=== PATIENT | female | born 1990 | race Caucasian/White ===

== ENCOUNTER 2020-05-23 06:03 | Inpatient (IN) | payer BC, SELFPAY ==
[2020-05-23] VITALS (194 sets, daily range): BP systolic 86–137; BP diastolic 37–113; PULSE 31–238; RESP 16–20; TEMP 36.3–37.7; O2SAT 77–100; BMI 37.8
[2020-05-23 06:46] LABS: Basophils Absolute Auto 0.1 K/mm3 (0.0-0.1); Basophils Percent Auto 0.8 % (0.2-1.2); Eosinophils Absolute Auto 0.2 K/mm3 (0-0.3); Eosinophils Percent Auto 3.1 % (0-4.4); Hematocrit 36.2 % (37.0-47.0); Hemoglobin 11.9 g/dL (12.0-15.0); Immature Granulocyte Absolute 0.04 K/mm3 (0.00-0.031); Immature Granulocyte Percent A 0.5 % (0-0.5); Lymphocytes Absolute Auto 1.77 K/mm3 (0.9-3.2); Mean Corpuscular HGB Conc 32.9 g/dl (32-36); Mean Corpuscular Hemoglobin 26.4 pg (26-34); Mean Corpuscular Volume 80.4 fl (80-100); Monocytes Absolute Auto 0.7 K/mm3 (0.1-0.6); Monocytes Percent Auto 9.8 % (2.6-8.5); Neutrophils Absolute Auto 4.6 K/mm3 (1.3-6.7); Neutrophils Percent Auto 61.8 % (45.5-73.1); Platelet Count Result 275 k/mm3 (150-375); Red Cell Distribution Width 14.2 % (11.5-14.5); White Blood Count 7.4 K/mm3 (4.5-10.0)
[2020-05-23] MEDS: LACTATED RINGERS 1,000 ML 125 ML IV CONT ×3 (06:59→12:58)
[2020-05-23] MEDS: OXYTOCIN 30 UNITS/NS 500 ML 30 UNITS/500 ML BAG 6 UNITS IV CONT (07:04)
--- NOTE | 2020-05-23 07:18 | LDADM ---
This patient, Brianna Best, was admitted to Labor/Delivery/Recovery 107 on 05/23/20 at 06:03. Plans for labor, pain management and were discussed with patient. Patient/family oriented to hospital policies and general routines including ID bracelet, bed and alarms, visiting hours, pain management, procedures, bathroom and other care routines, personal items, smoking policy, room service/diet and guest tray routines, infant security routines, call light, and visiting hours. Patient/Family are encouraged to report perceived risks to care and to ask questions if they do not understand what they are told or what they should do. See OBIX for further documentation.
--- NOTE | 2020-05-23 07:45 | WPDOBADMIT ---
Obstetrics - Admit Note Admission Note: record reviewed. Additions to the history and/or subsequent changes in the physical findings follow. 29 y/o G1 at 39 1/7 weeks here desiring induction of labor. GBS neg. AVSS ABD soft, nontender, gravid, vertex EXT nontender Cervix 350/-2. AROM with clear fluid. Vertex. NST reactive TOCO: contractions every 2-4 min A: IUP at term with favorable cervix P: Oxytocin. Anticipate .
[2020-05-23] MEDS: ONDANSETRON INJ 4 MG/2 ML VIAL IV PUSH ×2 (09:44→15:45)
--- NOTE | 2020-05-23 10:13 | P.PNAN_ITS ---
Anes - Eval Pre Procedure Procedure: Labor Epidural Date/Time: 05/23/20 10:13 Pre Op Diagnosis: Induction of Labor Patient Data Age: 29 Gender: F Height: 1.73 m Weight: 112.9 kg Last Vital Signs Temp 36.3 C L 05/23/20 10:00 Pulse 71 05/23/20 10:00 BP 113/66 05/23/20 10:00 Pulse Ox 96 05/23/20 10:12 Allergies Allergy/AdvReac Type Severity Reaction Status Date / Time No Known Allergies Allergy Verified 05/23/20 06:24 Home Medications Medication Instructions Recorded Confirmed Type PNV cmb#95-ferrous fumarate-FA 1 tablet PO DAILY 05/04/20 05/23/20 History [] Laboratory Tests 05/23/20 05/23/20 05/23/20 06:40 06:40 06:40 WBC 7.4 K/mm3 K/mm3 (4.5-10.0) RBC 4.50 M/mm3 M/mm3 (4.2-5.4) Hgb 11.9 g/dL L g/dL (12.0-15.0) Hct 36.2 % L % (37.0-47.0) MCV 80.4 fl fl (80-100) MCH 26.4 pg pg (26-34) MCHC 32.9 g/dl g/dl (32-36) RDW 14.2 % % (11.5-14.5) Plt Count 275 k/mm3 k/mm3 (150-375) MPV 11.0 fl H fl (7.4-10.4) Immature Gran % (Auto) 0.5 % % (0-0.5) Neut % (Auto) 61.8 % % (45.5-73.1) Lymph % (Auto) 24.0 % % (18.3-44.2) Travis % (Auto) 9.8 % H % (2.6-8.5) Eos % (Auto) 3.1 % % (0-4.4) Baso % (Auto) 0.8 % % (0.2-1.2) Lymph # (Auto) 1.77 K/mm3 K/mm3 (0.9-3.2) Travis # (Auto) 0.7 K/mm3 H K/mm3 (0.1-0.6) Eos # (Auto) 0.2 K/mm3 K/mm3 (0-0.3) Baso # (Auto) 0.1 K/mm3 K/mm3 (0.0-0.1) Abs Immat Gran (auto) 0.04 K/mm3 H K/mm3 (0.00-0.031) Absolute Neuts (auto) 4.6 K/mm3 K/mm3 (1.3-6.7) Absolute Nucleated RBC 0.0 K/mm3 K/mm3 (0.0-0.012) Nucleated RBC % 0.0 % % (0.0-0.2) RPR Pending Blood Type A Positive Antibody Screen Negative Patient hx anesthesia problems: none Family hx anesthesia problems: none PMFSH Family History Family History Father Epilepsy Mother Hypothyroidism Social History Social History Smoking status: Never smoker Substance use: never Gender identity (if verbalized by the patient): Female Spiritual care concerns: No Exam Day of Procedure 05/23/20 10:13 Patient weight: obese Heart: regular rate and rhythm Lungs: normal air movement Airway: Mallampati scale class III Neurological: alert and oriented
--- NOTE | 2020-05-23 17:30 | PM.OBPNLAB ---
Pain Control Date/time seen: 05/23/20 17:52 Comments: Comfortable with epidural Pelvic Exam Dilation (cm): 10 Effacement (%): 100 station: +1 Status Comments: NST reactive TOCO: contractions every 2-4 min Assessment and Plan Comments: Begin pushing
--- NOTE | 2020-05-23 17:53 | PM.OBDSVD ---
DS: Admitting Diagnosis Admitting Diagnosis Admitting Diagnosis: IUP at term DS: Discharge Diagnosis Discharge Diagnosis (1) (normal spontaneous vaginal delivery): Code(s): O80 - Encounter for full-term uncomplicated delivery Status: Acute OB - DS: Summary OB Procedures : None OB Procedures Intrapartum: Spontaneous Vag Delivery OB Procedures: : None DS: Data Data Completed and Pending Labs on day of discharge: Labs from last 24 hours 05/23/20 05/23/20 05/23/20 06:40 06:40 06:40 WBC 7.4 RBC 4.50 Hgb 11.9 L Hct 36.2 L MCV 80.4 MCH 26.4 MCHC 32.9 RDW 14.2 Plt Count 275 MPV 11.0 H Immature Gran % (Auto) 0.5 Neut % (Auto) 61.8 Lymph % (Auto) 24.0 [place] % (Auto) 9.8 H Eos % (Auto) 3.1 Baso % (Auto) 0.8 Lymph # (Auto) 1.77 [place] # (Auto) 0.7 H Eos # (Auto) 0.2 Baso # (Auto) 0.1 Abs Immat Gran (auto) 0.04 H Absolute Neuts (auto) 4.6 Absolute Nucleated RBC 0.0 Nucleated RBC % 0.0 RPR Pending Blood Type A Positive Antibody Screen Negative Discharge Plan Discharge Attending physician on discharge: Warren Mena Discharging Clinician: Warren Mena Patient Disposition: Home, Self-Care Activity: pelvic rest Diet: regular Discharge Instructions: Education: Mom and Baby Guide Given to: Mother Follow-Up: Call your delivering provider's office for an appointment to be seen in: 6 Weeks Mom and baby should come to the [facility] for the follow-up appointment. Appointment Date/Time: Wednesday, May 27, 2020 at 11:00 a.m. What to expect at your follow-up visit: Blood Pressure Check Physical Assessment Call [phone] if you are unable to keep your appointment time. BREAST CARE: * Wear a snug supportive bra. * For engorgement discomfort: Breast Feeding: * Apply warm moist washcloths * Express milk as needed to relieve engorgement * Wear loose clothing * For sore nipples: * Identify correct latch-on * Apply warm moist washcloths before and after nursing * Air dry nipples after nursing * May apply Lansinoh cream to nipples EPISIOTOMY/PERINEAL CARE: * Until bleeding stops, use your aram bottle after urinating * Change your pad frequently throughout the day * You may take sitz baths several times a day (fill your bathtub with warm water and soak for 20 minutes.) Do NOT bathe in the water * No tub baths until seen by your physician - You may shower ACTIVITY: * Rest as much as possible. * Do not exercise or lift anything heavier than your baby (such as laundry or other children.) * Avoid stairs or driving as much as possible. * Do not put anything into the vagina. No douching, tampons, or sexual activity until seen by physician. NOTIFY PHYSICIAN IF YOU HAVE ANY QUESTIONS OR IF ANY OF THE FOLLOWING SYMPTOMS OCCUR: * If your perineum becomes red, swollen, or more painful than what you have experienced in the hospital. * If your vaginal bleeding becomes foul smelling. * If your vaginal bleeding becomes more heavy than a period or if your bleeding changes from pink to bright red. However, you may pass an occasional walnut-sized clot once or twice for the first week . * If you experience a sharp, shooting pain in you calves. * If you discover a hard, reddened area on your breast or if you experience flu-like symptoms. DIET: * Eat regular, well-balanced meals. * Drink plenty of fluids daily. If , drink to thirst. Call or return if temperature above 100.4? F, increased abdominal pain, increased vaginal bleeding or any new problems. Stand Alone Forms: General Discharge Information Follow-up/Referrals: Warren Mena MD [Physician] - 6 Weeks Discharge Medications: New ibuprofen 600 mg tablet 600 mg PO Q6H PRN (Reason: scratch brusher
--- NOTE | 2020-05-23 19:28 | P.PCNOB_ITS ---
OB - Delivery Note Procedure Delivery date: 05/23/20 Procedure: Induction of labor with Excisional biopsy of perineal skin tag Induction method: AROM and per pitocin protocol Delivery monitor: external FHT, external uterine and internal uterine Route of delivery: Laceration Description: Labial (left) Delivery repair: vicryl (3-0) Specimen: Yes (cord blood, perineal skin tag) Quantitative Blood Loss (ml): 240 Anesthesia type: Epidural Disposition: PACU Complications: None Narrative: 29 y/o G1 at 39 1/7 weeks gestation who presented to the hospital for induction of labor. Oxytocin was administered intravenously. Amniotomy was performed with return of clear fluid. She received an epidural for pain control. Her labor progressed and her cervix dilated completely. She pushed with good effort and delivered the infant's head to the perineum, followed by the body. The nose and mouth were bulb suctioned. After a delay, the cord was clamped and cut. The was handed off the field. Cord blood was collected. The placenta delivered spontaneously and was grossly normal in appearance. The usual 3 vessel cord was noted. A left labial laceration was montiel stained. This was reapproximated using 3 0 Vicryl in interrupted figure of eight fashion. A 6 x 6 mm perineal skin tag just on the left of midline was elevated and sharply excised. The wound edges were reapproximated with a single interrupted suture of the same material. Excellent hemostasis resulted as did excellent reapproximation of the normal anatomy. Needle and instrument counts were correct. The patient was taken to recovery room in stable condition. The infant went to the nursery in stable condition. I was present and scrubbed for the entire delivery. Baby Date of : 05/23/20 Time of : 19:31 Weeks of gestation at delivery: 39 Infant gender: Male Weight (pounds): 7 Weight (ounces): 1 presentation: vertex position: Left Occiput Posterior Placenta delivery description: Spontaneous and Normal Configuration cord vessel description: 3 Vessels and Delayed Cord Clamping score one minute: 9 score five minutes: 9
[2020-05-23] MEDS: OXYTOCIN 30 UNITS/NS 500 ML 30 UNITS/500 ML BAG 125 UNITS IV CONT (19:38)
[2020-05-23] MEDS: IBUPROFEN 600 MG TABLET PO (21:29)
[2020-05-23] MEDS: BENZOCAINE 20% AER SPR (*SP) 56 GM CAN 1 SPRAY TOPICAL (21:30)
[2020-05-23] MEDS: WITCH HAZEL 40 PADS 1 PAD TOPICAL (21:30)
--- NOTE | 2020-05-23 21:54 | OBPPTRN ---
Patient transferred to post room #286 via wheelchair. Support person present. Oriented to unit, room, information board, rooming in, admission packet and security measures. Patient verbalizes understanding.
[2020-05-24] MEDS: ACETAMINOPHEN 325 MG TABLET 650 MG PO ×2 (01:10→13:13)
[2020-05-24 02:00] VITALS: BP 102/64; PULSE 72; RESP 16; TEMP 36.5; O2SAT 98
[2020-05-24] MEDS: IBUPROFEN 600 MG TABLET PO ×2 (05:45→19:25)
[2020-05-24 06:01] LABS: Hematocrit 31.1 % (37.0-47.0); Hemoglobin 10.4 g/dL (12.0-15.0)
--- NOTE | 2020-05-24 07:33 | PM.OBPNVD ---
OB - PN: Subj Subjective Date/time seen: 05/24/20 07:33 Patient comments: no complaints, pain well controlled and tolerating diet [place] feeding status: exclusively breast feeding Narrative: patient doing well this AM. No complaints. Pain is well controlled. She reports minimal bleeding. She is ambulating and voiding without difficulty. She is tolerating PO. She denies N/V, fever, chills. OB - PN: Obj Data Labs CBC & Chem 7: 05/24/20 05:46 Labs: Laboratory Results - last 24 hr 05/23/20 05/24/20 06:40 05:46 Hgb 10.4 L Hct 31.1 L Blood Type A Positive Antibody Screen Negative OB - PN A/P Plan day: 1 Plan: routine care Comments: patient doing well H/H stable plan for infant circumcision today, risks, benefits, alternatives discussed, verbal consent obtained continue routine care Time Spent With Patient Time: Total time spent is greater than 50% in coordination of care (as documented) at patient's floor/unit and/or counseling patient: Time with patient: less than 15 minutes Review of Systems Review of Systems: All systems reviewed & are unremarkable except as noted in HPI and below Exam Const: General: comfortable and no acute distress Resp: Effort & Inspection: normal respiratory effort Cardio: Rate: regular rate GI: GI Palp: Yes Soft to palpation and No Tenderness to palpation present (GI) Auscultation: normal bowel sounds Other: fundus firm and below umbilicus. Psych: Affect: normal affect
[2020-05-24 08:05] VITALS: BP 116/67; PULSE 75; RESP 18; TEMP 36.5; O2SAT 100
[2020-05-24 08:15] VITALS: PULSE 75; RESP 18; O2SAT 100
[2020-05-24] MEDS: DOCUSATE SODIUM 100 MG CAPSULE PO ×2 (08:21→20:41)
[2020-05-24] MEDS: SIMETHICONE 80 MG TAB.CHEW PO (08:22)
[2020-05-24] MEDS: MULTIVIT/MIN/PREN/FOL AC/IRON TABLET 1 TAB PO (08:22)
--- NOTE | 2020-05-24 09:41 | PC.NURSE ---
Consulted with patient, reviewed feeding cues, frequencies, duration of feedings, feeding elimination flow sheet, and signs of adequate intake. Demonstrated stimulation techniques to wake for feeding. Assisted with to breast. Reviewed positioning/alignment, holding breast and asymmetrical latch on. was able to latch correctly. Infant nursed eagerly, with steady draws and frequent swallowing noted. Reviewed signs of a correct latch, effective nursing and suck swallow ratio. was able to maintain latch without discomfort to mother. Nipple care reviewed. Instructed mother to call out for RN assistance if she is unable to latch for feeding or she has discomfort with nursing. Instructed feeding should be initiated three hours from start of last feeding or if feeding cues are noted before. Mother voiced understanding of information shared.
--- NOTE | 2020-05-24 11:01 | WPDANLDPN2 ---
Anes-Prog Note L&D Date/Time: 05/24/20 11:01 Comfortable throughout: labor and delivery Neuraxial method: epidural Epidural/Spinal procedure site: clean & non-tender Neuro status: Neuro function grossly intact. Respiratory status: normal Airway patency: baseline Mental status: baseline Post-Op hydration status: normal Vital Signs: Last Vital Signs Temp 97.7 F 05/24/20 08:05 Pulse 75 05/24/20 08:05 Resp 18 05/24/20 08:05 BP 116/67 05/24/20 08:05 Pulse Ox 100 05/24/20 08:05 Pain score (VAS): no pain verbalized I/O: Intake & Output 05/23/20 05/24/20 05/24/20 23:59 07:59 15:59 Intake Total 1500 500 Output Total 160 Balance 1340 500 Patient feedback: Patient satisfied with anesthetic care.
[2020-05-24 12:55] LABS: Rapid Plasma Reagin Non-Reactive (NonReactive)
[2020-05-24 13:00] VITALS: BP 112/76; PULSE 103; RESP 20; TEMP 36.4; O2SAT 97
[2020-05-24 16:30] VITALS: BP 115/78; PULSE 87; RESP 18; TEMP 36.6; O2SAT 98
[2020-05-24 19:25] VITALS: BP 114/76; PULSE 88; RESP 16; TEMP 36.8
--- NOTE | 2020-05-25 08:00 | P.DS_ITS ---
DS: Admitting Diagnosis Admitting Diagnosis Admitting Diagnosis: IUP at term for IOL OB - DS: Summary OB Procedures : None OB Procedures Intrapartum: Spontaneous Vag Delivery OB Procedures: : None Status at Discharge Functional status at discharge: independent ambulation Overall status at discharge: patient is back to baseline Time Spent with Patient Time attestation: Total time spent providing and/or coordinating discharge services: Time spent: Less than 30 minutes Exam Const: General: comfortable and no acute distress Resp: Effort & Inspection: normal respiratory effort Auscultation: clear to auscultation bilaterally Cardio: Rate: regular rate GI: GI Palp: Yes Soft to palpation Auscultation: normal bowel sounds Other: Fundus firm below umbilicus Psych: Appearance: grossly normal Mental Status: mental status grossly normal Affect: normal affect DS: Data Data Completed and Pending Pending studies at discharge: Pending at discharge 05/23/20 19:28 Surgical [PTH] Routine Labs on day of discharge: Labs from last 24 hours 05/23/20 06:40 RPR Non-reactive Discharge Plan Discharge Attending physician on discharge: Warren Mena Discharging Clinician: Warren Mena Patient Disposition: Home, Self-Care Activity: pelvic rest Diet: regular Discharge Instructions: Call or return if temperature above 100.4? F, increased abdominal pain, increase d vaginal bleeding or any new problems. Stand Alone Forms: General Discharge Information Follow-up/Referrals: Warren Mena MD [Physician] - 6 Weeks Discharge Medications: New ibuprofen 600 mg tablet 600 mg PO Q6H PRN (Reason: cramps) Qty: 30 RF: 0 Wkj-L-Figecc Cream 1 applic topical PRN PRN (Reason: Sore Nipples) Qty: 28 RF: 0 acetaminophen [Mapap (acetaminophen)] 325 mg Tablet 650 mg PO Q6H PRN (Reason: Mild Pain (1-3) Or Headache) Qty: 30 RF: 0 ibuprofen 600 mg Tablet 600 mg PO Q6H PRN (Reason: Cramping) Qty: 30 RF: 0 Continued PNV cmb#95-ferrous fumarate-FA [] 28 mg iron- 800 mcg Tablet 1 tablet PO DAILY RF: 0 Date of admission: 05/23/20 06:03 Primary Care Provider: PHYSICIAN,OVERHEAD IRRIGATOR Admitting Provider: Warren Mena Attending physician on admission: Warren Mena Condition: Stable
[2020-05-25 08:31] VITALS: BP 119/76; PULSE 85; RESP 18; TEMP 36.6; O2SAT 99
[2020-05-25] MEDS: MULTIVIT/MIN/PREN/FOL AC/IRON TABLET 1 TAB PO (08:58)
[2020-05-25] MEDS: SIMETHICONE 80 MG TAB.CHEW PO (08:59)
[2020-05-25] MEDS: IBUPROFEN 600 MG TABLET PO (08:59)
[2020-05-25] MEDS: DOCUSATE SODIUM 100 MG CAPSULE PO (08:59)
--- NOTE | 2020-05-25 09:07 | PC.NURSE ---
Patient viewed the discharge video Mother & Baby Care, The First Two Weeks . Patient was given the opportunity and encouraged to ask questions. Patient verbalized understanding of information shared and has been given the mother/baby guide for home reference.
[2020-05-27 11:31] VITALS: BP 136/89; PULSE 87; RESP 20; TEMP 36.9; O2SAT 100
== END 2020-05-25 12:30 | disposition home or self-care (01) | DRG 807 ==
LOC: ANHLDR 17:54 → ANHOB2 05-24 11:05 → ANHLDR 05-27 14:14 → ANHOB2 05-27 14:14
PROVIDERS: Admitting Provider Obstetrics & Gynecology; Visit Provider Student in an Organized Health Care Education/Training Program
DX: O76 Abnormality in fetal heart rate and rhythm complicating labor and delivery (principal); Z37.0 Single live birth; O70.0 First degree perineal laceration during delivery; O99.72 Diseases of the skin and subcutaneous tissue complicating childbirth; Z3A.39 39 weeks gestation of pregnancy; L91.8 Other hypertrophic disorders of the skin
CPT/HCPCS: 36415; 85014; 85018; 85025; 86592; 86850; 86900; 86901; 88305; 88342; A9270; J2405; J2590; J2795; J7120

== ENCOUNTER 2020-06-13 10:59 | Outpatient (RCR) | payer BC, SELFPAY ==
--- NOTE | 2020-06-05 12:50 | PC.NURSE ---
IN 1000 OUT 1105 HISTORY: Pt. delivered at [facility] at 39 weeks. had no complications after delivery. Mother had no complications after delivery. is now 13 days/weeks old. Infant appears to be well cared for. has been seen by ICP as scheduled. Infant last seen by ICP at 1 week. Mother reports: Mother was given a nipple shield within the first few feedings. Mother has weaned from shield and will only use if infant refuses to latch. Pain with feeding at latch and after feeding. Both nipples have scabs to center of nipple from incorrect latch. Mother has been on AB TX for mastitis, today is the last day of medications. No visual signs of mastitis noted, mother denies deep breast pain at this time. Infant feeds freq and inconsistently, falling asleep while feeding then when removed from breast he is awake with crying and rooting. Mother reports she supplements at times and is very confused and tired from freq feedings. Mother wishes: Correct latch, less pain and more satisfied after feedings. Currently at 6 wets per day and 4 yellow seedy stools per day. weight: 7#1 Discharge weight: 6#11 Last Weight: at 1 week 6#14 Pre feeding weight: 3370 Post feeding weight: 3401 OBSERVATION: Assisted with infant to breast. Reviewed positioning/alignment in cross cradle, holding breast in U hold and guided asymmetrical latch on. was able to latch correctly within a few attempts without shield. nursed eagerly, with steady draws and frequent swallowing noted. Infant quickly began to slow with long pausing. Suggested to stimulate while feeding to keep infant awake and nursing effectively for increased stimulation and increased intake. responded with burst of effective nursing with intermittent long pausing. Discussed how suck swallow relates to infant intake, and milk supply and well as maintaining deep latch. Reviewed signs of a correct latch, effective nursing and suck swallow ratio. Infant was able to maintain latch. Mother reported tenderness at times, had slipped to shallow latch. Demonstrated how to adjust latch more deeply while feeding. Mother quickly reports she can feel is latched more deeply and has minimal tenderness. Mother was able to switch to right breast and latch correctly without assist. PLAN: Mother will follow above feeding plan using techniques for deeper latch and keeping awake and effectively feeding each feeding. Mother will initiate pumping after two feeding per day and offering EBM when infant does not settle after 40 minutes of feeding. Mother will call with further questions or concerns. Follow up phone call scheduled for Wednesday.
--- NOTE | 2020-06-13 11:24 | PC.NURSE ---
IN 1000 OUT 1055 HISTORY: Mother and in 1 week ago for latch issues. Worked with deeper latch, mother had pain with feeding and scabbing to both nipples. was inconsistent and fussy with and after feedings. Mother reports she has seen ICP and infant has not gained weight from last visit. Mother continues with nipple pain. is fussy between feedings and does not appear to be satisfied. Mother will supplement at times. Mother reports she feels full at feedings and can feel does empty. She can pump 1 oz per session 2-3 times per day. Currently at 6 wets per day and 4 yellow seedy stools per day. weight: Discharge weight: Last Weight: Pre feeding weight: 3429 Post feeding weight: Right breast 3451 25 minutes and Left breast 3456 8 minutes OBSERVATION: Mother struggles to latch . Assisted with positioning/alignment and holding breast for football on right breast. keeps tongue curled up and several attempts to latch correctly with nipple on tongue. Infant would latch with nipple under tongue and suck, mother reported pain, she did not understand latch was incorrect and release. Mother allowed to continue to nurse incorrectly. Discussed the difference of the long draws and the short chewy suck to assist with recognizing correct latch. Discussed infant does not receive a good milk flow with incorrect latch and this is causing the nipple pain and breakdown. Suggested mother visualizes tongue is down before attempting latch. Once on infant nurses eagerly with long draws and freq swallowing for 2-3 minutes then begins to slow. will slip to shallow latch and freq will draw tongue up and continue to suck with tongue up, with heavy dimpling noted. Advised mother once is on correctly and nursing to assist with maintaining deep latch by holding breast and keeping infant close to breast. Good stimulation while feeding to keep awake and nursing effectively with assist with increased intake and stimulation to increase supply. Mother struggles to keep infant awake with feedings. PLAN: Mother will follow above feeding plan using techniques for deeper latch, breaking and relatching if latch is incorrect. Suggested for the next 24 hours to allow to breast for 30 minutes, then supplement 1 oz and pump after each feeding using EBM as part of supplement. Plan is to allow both to rest between feeding and to allow mother to refill for next feeding. Follow up visit/phone call scheduled for tomorrow am
== END 2020-08-05 07:43 | disposition home or self-care (01) ==
LOC: ANHOBOP 10:59
PROVIDERS: Visit Provider Pediatrics
DX: O92.13 Cracked nipple associated with lactation (principal)
CPT/HCPCS: 99212; G0463

== ENCOUNTER 2022-10-26 21:55 | Outpatient (CLI) | payer BC, SELFPAY ==
[2022-10-26 22:24] VITALS: BP 147/95
[2022-10-26 22:32] VITALS: BP 142/88
[2022-10-26 22:46] VITALS: BP 147/92
[2022-10-26 23:03] VITALS: BP 134/85
--- NOTE | 2022-10-26 23:07 | PC.NURSE ---
Spoke with Dr. Pasha Kwon about patients negative rom plus, ctx, SVE, BP's. Orders to d/c patient.
--- NOTE | 2022-10-26 23:30 | PC.NURSE ---
Pt's BP cuff was too small. Switched cuff size at 2300.
== END 2022-10-26 23:21 | disposition home or self-care (01) ==
LOC: ANHOBOP 23:12 → ANHLDR 23:13
PROVIDERS: Visit Provider Obstetrics & Gynecology
DX: O42.90 Premature rupture of membranes, unspecified as to length of time between rupture and onset of labor, unspecified weeks of gestation (principal); Z3A.00 Weeks of gestation of pregnancy not specified
CPT/HCPCS: 59025; 84112; 99199

== ENCOUNTER 2022-11-03 05:54 | Inpatient (IN) | payer BC, SELFPAY ==
[2022-11-03] VITALS (62 sets, daily range): BP systolic 81–133; BP diastolic 30–100; PULSE 25–130; RESP 16–18; TEMP 36–37.4; O2SAT 85–100; BMI 37.8
--- NOTE | 2022-11-03 05:54 | LDADM ---
This patient, Brianna Best, was admitted to Labor/Delivery/Recovery 107 on 11/03/22 at 05:54. Plans for labor, pain management and were discussed with patient. Patient/family oriented to hospital policies and general routines including ID bracelet, bed and alarms, visiting hours, pain management, procedures, bathroom and other care routines, personal items, smoking policy, room service/diet and guest tray routines, infant security routines, and visiting hours. Patient/Family are encouraged to report perceived risks to care and to ask questions if they do not understand what they are told or what they should do. See OBIX for further documentation.
[2022-11-03 06:58] LABS: Basophils Absolute Auto 0.1 K/mm3 (0.0-0.1); Basophils Percent Auto 0.8 % (0.2-1.2); Eosinophils Absolute Auto 0.2 K/mm3 (0-0.3); Eosinophils Percent Auto 2.9 % (0-4.4); Hematocrit 36.3 % (37.0-47.0); Hemoglobin 11.7 g/dL (12.0-15.0); Immature Granulocyte Absolute 0.06 K/mm3 (0.00-0.031); Immature Granulocyte Percent A 0.8 % (0-0.5); Lymphocytes Absolute Auto 2.11 K/mm3 (0.9-3.2); Lymphocytes Percent Auto 28.9 % (18.3-44.2); Mean Corpuscular HGB Conc 32.2 g/dl (32-36); Mean Corpuscular Hemoglobin 26.5 pg (26-34); Mean Corpuscular Volume 82.1 fl (80-100); Mean Platelet Volume 11.3 fl (7.4-10.4); Monocytes Absolute Auto 0.9 K/mm3 (0.1-0.6); Monocytes Percent Auto 12.6 % (2.6-8.5); Platelet Count Result 259 k/mm3 (150-375); Red Blood Count 4.42 M/mm3 (4.2-5.4); Red Cell Distribution Width 14.5 % (11.5-14.5); White Blood Count 7.3 K/mm3 (4.5-10.0)
[2022-11-03] MEDS: OXYTOCIN 30 UNITS/NS 500 ML 30 UNITS/500 ML BAG IV CONT (07:14)
[2022-11-03] MEDS: AMPICILLIN 2 GM/NS 100 ML 2 GM/100 ML BAG IVPB (07:14)
[2022-11-03] MEDS: LACTATED RINGERS 1,000 ML 125 ML IV CONT (07:15)
--- NOTE | 2022-11-03 08:45 | WPDOBADMIT ---
Obstetrics - Admit Note Admission Note: record reviewed. Additions to the history and/or subsequent changes in the physical findings follow. 31 y/o at 40 weeks here for induction of labor. GBS pos. AVSS NST reactive TOCO: contractions every 2-5 min ABD: soft, nontender, gravid EXT nontender Cervix 4-5/80/-2. AROM with meconium-stained fluid. Vertex. A: IUP at term here for scheduled induction of labor. GBS pos. P: Oxytocin, ampicillin. Peds aware of meconium. Anticipate .
[2022-11-03] MEDS: LACTATED RINGERS 500 ML 999 ML IV CONT (08:50)
--- NOTE | 2022-11-03 09:35 | WPDANESEPPF ---
Anes - Initial Pre Proc Eval Date/Time: 11/03/22 09:35 Surgeon: Warren Mena MD Pre Op Diagnosis: IOL Patient Data Age: 31 Gender: F Height: 1.73 m Weight: 113 kg Last Vital Signs Temp 36.0 C L 11/03/22 07:19 Pulse 76 11/03/22 09:31 BP 99/68 L 11/03/22 09:31 Pulse Ox 100 11/03/22 09:33 O2 Del Method Room Air 11/03/22 06:41 Allergies Allergy/AdvReac Type Severity Reaction Status Date / Time No Known Allergies Allergy Verified 06/20/21 16:47 Home Medications Medication Instructions Recorded Confirmed Type vit no.95-ferrous 1 tablet PO DAILY 05/04/20 11/03/22 History fumarate 28 mg-folic acid 800 mcg tablet () Laboratory Tests 11/03/22 06:28 WBC 7.3 K/mm3 (4.5-10.0) RBC 4.42 M/mm3 (4.2-5.4) Hgb 11.7 L g/dL (12.0-15.0) Hct 36.3 L % (37.0-47.0) MCV 82.1 fl (80-100) MCH 26.5 pg (26-34) MCHC 32.2 g/dl (32-36) RDW 14.5 % (11.5-14.5) Plt Count 259 k/mm3 (150-375) MPV 11.3 H fl (7.4-10.4) Immature Gran % (Auto) 0.8 H % (0-0.5) Neut % (Auto) 54.0 % (45.5-73.1) Lymph % (Auto) 28.9 % (18.3-44.2) [place] % (Auto) 12.6 H % (2.6-8.5) Eos % (Auto) 2.9 % (0-4.4) Baso % (Auto) 0.8 % (0.2-1.2) Lymph # (Auto) 2.11 K/mm3 (0.9-3.2) [place] # (Auto) 0.9 H K/mm3 (0.1-0.6) Eos # (Auto) 0.2 K/mm3 (0-0.3) Baso # (Auto) 0.1 K/mm3 (0.0-0.1) Abs Immat Gran (auto) 0.06 H K/mm3 (0.00-0.031) Absolute Neuts (auto) 4.0 K/mm3 (1.3-6.7) Absolute Nucleated RBC 0.0 K/mm3 (0.0-0.012) Nucleated RBC % 0.0 % (0.0-0.2) RPR Pending Blood Type A Positive Antibody Screen Negative Patient hx anesthesia problems: none Family hx anesthesia problems: none Results Review: All pre-operative results and documents have been reviewed as part of the pre-operative evaluation. [facility] Family History Family History Father Epilepsy Mother Hypothyroidism Social History Social History Smoking status: Never smoker Second hand tobacco smoke exposure: No Substance use: never Lack of Transportation: No Lack of Food: Never True Current Housing: I Have Housing Concerned About Future Housing: No Difficulty Paying Gas/Electric Bills: No Difficulty Paying for Meds: No Currently Unemployed: No Education: Master's Degree or Higher Difficulty w/ Childcare or Family Care: No Gender identity (if verbalized by the patient): Female Spiritual care concerns: No Anes - Eval Final PreProcedure Day of Procedure 11/03/22 09:35 Patient weight: obese Heart: regular rate and rhythm Lungs: clear to auscultation Neurological: alert and oriented ASA classification: II Emergent: no Anesthetic plan: proceed Anesthesia type and monitoring: regional epidural and standard monitoring Results Review: All pre-operative results and documents have been reviewed as part of the pre-operative evaluation. Informed Consent: The patient's anesthetic plan and its attendant risks and benefits were discussed with the patient/family/POA. Questions were solicited and answers provided to the satisfaction of the patient/family/POA.
--- NOTE | 2022-11-03 10:39 | P.PCNOB_ITS ---
OB - Delivery Note Procedure Delivery date: 11/03/22 Procedure: Induction of labor with Induction method: Per Pitocin Protocol Delivery augmentation: Rupture of Membranes Delivery monitor: External FHT, External Uterine and Internal Uterine Route of delivery: Laceration Description: Labial Delivery repair: vicryl (3-0) Specimen: Yes (cord blood, placenta) Quantitative Blood Loss (ml): 120 Anesthesia type: Epidural Disposition: PACU Complications: None Narrative: 31 y/o at 40 weeks gestation who presented to the hospital for ind uction of labor. She was given ampicillin for GBS colonization. Oxytocin was administered intravenously. Amniotomy was performed with return of meconium- stained fluid. She received an epidural for pain control. Her labor progressed and her cervix dilated completely. She pushed with good effort and delivered the 's head to the perineum. A loose nuchal cord was reduced and the body delivered. The nose and mouth were bulb suctioned, and the cord was clamped and cut. The was handed off the field. Cord blood was collected. The placenta delivered spontaneously and was grossly normal in appearance. The usual 3 vessel cord was noted. A left labial laceration was reapproximated using interrupted figure of eight sutures of 3-0 vicryl. Excellent hemostasis resulted as did excellent reapproximation of the normal anatomy. Needle and instrument counts were correct. The patient was taken to recovery room in stable condition. The infant went to the nursery in stable condition. I was present and scrubbed for the entire delivery. [place] Baby Date of : 11/03/22 Time of : 10:25 Weeks of gestation at delivery: 40 gender: Female presentation: vertex position: Left Occiput Anterior Placenta delivery description: Spontaneous and Normal Configuration Cord Vessel Description: 3 Vessels and Nuchal Cord (x1) score one minute: 7 score five minutes: 9
--- NOTE | 2022-11-03 10:42 | PM.OBDSVD ---
DS: Admitting Diagnosis Discharge Date 11/05/22 Admitting Diagnosis IUP at 40 weeks DS: Discharge Diagnosis Discharge Diagnosis (1) (normal spontaneous vaginal delivery): Code(s): O80 - Encounter for full-term uncomplicated delivery Status: Acute OB - DS: Summary OB Procedures : None OB Procedures Intrapartum: Spontaneous Vag Delivery and GBS prophylaxis OB Procedures: : None Time Spent with Patient Time attestation: Total time spent providing and/or coordinating discharge services: DS: Data Data Completed and Pending Labs on day of discharge: Labs from last 24 hours 11/03/22 06:28 WBC 7.3 RBC 4.42 Hgb 11.7 L Hct 36.3 L MCV 82.1 MCH 26.5 MCHC 32.2 RDW 14.5 Plt Count 259 MPV 11.3 H Immature Gran % (Auto) 0.8 H Neut % (Auto) 54.0 Lymph % (Auto) 28.9 [place] % (Auto) 12.6 H Eos % (Auto) 2.9 Baso % (Auto) 0.8 Lymph # (Auto) 2.11 [place] # (Auto) 0.9 H Eos # (Auto) 0.2 Baso # (Auto) 0.1 Abs Immat Gran (auto) 0.06 H Absolute Neuts (auto) 4.0 Absolute Nucleated RBC 0.0 Nucleated RBC % 0.0 RPR Pending Blood Type A Positive Antibody Screen Negative Discharge Plan Discharge Attending physician on discharge: Warren Mena Discharging Clinician: Warren Mena Patient Disposition: Home, Self-Care Activity: pelvic rest Diet: regular Discharge Instructions: Education: Mom and Baby Guide Given to: Mother Follow-Up: Call your delivering provider's office for an appointment to be seen in: 6 Weeks Mom and baby should come to the [facility] for the follow-up appointment. Appointment Date/Time: November 06, 2022 at 10:00 am What to expect at your follow-up visit: Blood Pressure Check Call [phone] if you are unable to keep your appointment time. BREAST CARE: * Wear a snug supportive bra. * For engorgement discomfort: Breast Feeding: * Apply warm moist washcloths * Express milk as needed to relieve engorgement * Wear loose clothing * For sore nipples: * Identify correct latch-on * Apply warm moist washcloths before and after nursing * Air dry nipples after nursing * May apply Lansinoh cream to nipples PERINEAL CARE: * Until bleeding stops, use your aram bottle after urinating * Change your pad frequently throughout the day * You may take sitz baths several times a day (fill your bathtub with warm water and soak for 20 minutes.) Do NOT bathe in the water * No tub baths until seen by your physician - You may shower ACTIVITY: * Rest as much as possible. * Do not exercise or lift anything heavier than your baby (such as laundry or other children.) * Avoid stairs or driving as much as possible. * Do not put anything into the vagina. No douching, tampons, or sexual activity until seen by physician. NOTIFY PHYSICIAN IF YOU HAVE ANY QUESTIONS OR IF ANY OF THE FOLLOWING SYMPTOMS OCCUR: * If your perineum becomes red, swollen, or more painful than what you have experienced in the hospital. * If your vaginal bleeding becomes foul smelling. * If your vaginal bleeding becomes more heavy than a period or if your bleeding changes from pink to bright red. However, you may pass an occasional walnut-sized clot once or twice for the first week . * If you experience a sharp, shooting pain in you calves. * If you discover a hard, reddened area on your breast or if you experience flu-like symptoms. * If you have a fever of 100.4 or greater DIET: * Eat regular, well-balanced meals. * Drink plenty of fluids daily. If , drink to thirst.Call or return if temperature above 100.4? F, increased abdominal pain, increased vaginal bleeding or any new problems. Stand Alone Forms: General Discharge Information Follow-up/Referrals: Warren Mena MD [Physician] - 6 Weeks Discharge Medications: New ibupro
[2022-11-03] MEDS: OXYTOCIN 30 UNITS/NS 500 ML 30 UNITS/500 ML BAG 125 UNITS IV CONT (10:50)
[2022-11-03 13:48] LABS: Rapid Plasma Reagin Non-Reactive (NonReactive)
--- NOTE | 2022-11-03 13:55 | PC.NURSE ---
Patient transferred to post room #281 via wheelchair. Support person present. Oriented to unit, room, information board, rooming in, admission packet and security measures. Patient verbalizes understanding.
[2022-11-03] MEDS: IBUPROFEN 600 MG TABLET PO (15:17)
[2022-11-03] MEDS: ACETAMINOPHEN 325 MG TABLET 650 MG PO (20:26)
[2022-11-04] MEDS: IBUPROFEN 600 MG TABLET PO ×3 (01:36→16:55)
[2022-11-04 04:50] VITALS: BP 124/79; PULSE 66; RESP 16; TEMP 36.4; O2SAT 99
[2022-11-04 05:31] LABS: Hematocrit 33.9 % (37.0-47.0); Hemoglobin 10.7 g/dL (12.0-15.0)
--- NOTE | 2022-11-04 07:10 | PC.NURSE ---
PT introductions made and plan of care discussed per post , pain management, breast feeding, daily care activities. PT and fob both recipients of such instructions and no barriers to learning identified at this time. PT received such instructions per one to one discussion, mom baby care guide and demonstrations this shift. PT verbalized understanding of such care.
[2022-11-04 08:10] VITALS: BP 120/79; PULSE 78; RESP 18; TEMP 37.4; O2SAT 99
[2022-11-04 09:20] VITALS: PULSE 78; RESP 18; O2SAT 99
[2022-11-04] MEDS: ACETAMINOPHEN 325 MG TABLET 650 MG PO ×2 (09:20→16:56)
[2022-11-04] MEDS: WITCH HAZEL 40 PADS 1 PAD TOPICAL (09:20)
[2022-11-04] MEDS: DOCUSATE SODIUM 100 MG CAPSULE PO ×2 (09:21→16:56)
--- NOTE | 2022-11-04 11:58 | WPDANLDPN2 ---
Anes-Prog Note L&D Date/Time: 11/04/22 11:58 Neuraxial method: epidural Epidural/Spinal procedure site: clean & non-tender Neuro status: Neuro function grossly intact. Cardiovascular status: normal Respiratory status: normal Airway patency: baseline Mental status: baseline Post-Op hydration status: normal Vital Signs: Last Vital Signs Temp 99.4 F 11/04/22 08:10 Pulse 78 11/04/22 09:20 Resp 18 11/04/22 09:20 BP 120/79 11/04/22 08:10 Pulse Ox 99 11/04/22 09:20 O2 Del Method Room Air 11/04/22 09:20 Pain score (VAS): 0 I/O: Intake & Output 11/03/22 11/04/22 11/04/22 23:59 07:59 15:59 Intake Total 240 480 Balance 240 480 Post-procedural complaints: none Patient feedback: Patient satisfied with anesthetic care.
--- NOTE | 2022-11-04 14:19 | PC.NURSE ---
[id number] Mother is demonstrating her independent latch with appropriate positioning/alignment to the left breast using the football positioning. She denies any nipple discomfort and is responsively . Infant is currently meeting outcomes for weight, output, jaundice and feeding frequencies of 8-12 times in 24 hours. Mother declines any additional assistance/education at this time. Mother is encouraged to call for assistance if her infant doesn?t latch or there is discomfort with latching. Mother voiced understanding of information shared and the mom reminded of the mom/baby guide for an additional resource. self detached when RN was present, content and nipple not misshaped. Reported to the primary RN.
--- NOTE | 2022-11-04 15:37 | PM.OBPNVD ---
OB - PN: Subj Subjective Date/time seen: 11/04/22 15:37 Narrative: Pain OK. OB - PN: Obj Data Labs 11/04/22 04:58 Labs: Laboratory Results - last 24 hr 11/04/22 04:58 Hgb 10.7 L Hct 33.9 L OB - PN A/P Plan day: 1 Comments: A: PPD#1, doing well. P: Routine care. Exam Psych: Other: AVSS ABD soft, nontender, fundus firm EXT nontender
[2022-11-04 19:35] VITALS: BP 140/89; PULSE 82; RESP 16; TEMP 36.8; O2SAT 99
[2022-11-04] MEDS: SIMETHICONE 80 MG TAB.CHEW PO (19:41)
[2022-11-05] MEDS: IBUPROFEN 600 MG TABLET PO (05:50)
--- NOTE | 2022-11-05 07:45 | PC.NURSE ---
PT introductions made and plan of care discussed per post , pain management, breast feeding, daily care activities and pending discharge to home. PT and fob both recipients of such instructions and no barriers to learning identified at this time. PT received such instructions per one to one discussion, mom baby care guide and demonstrations this shift. PT verbalized understanding of such care.
[2022-11-05 08:35] VITALS: BP 124/75; PULSE 75; RESP 18; TEMP 36.9; O2SAT 99
[2022-11-05] MEDS: DOCUSATE SODIUM 100 MG CAPSULE PO (09:37)
[2022-11-05] MEDS: ACETAMINOPHEN 325 MG TABLET 650 MG PO (09:37)
[2022-11-05] MEDS: MULTIVIT/MIN/PREN/FOL AC/IRON TABLET 1 TAB PO (09:38)
[2022-11-05 09:50] VITALS: PULSE 75; RESP 18; O2SAT 99
--- NOTE | 2022-11-05 11:30 | PC.NURSE ---
Patient viewed the discharge video Mother & Baby Care, The First Two Weeks . Patient was given the opportunity and encouraged to ask questions. Patient verbalized understanding of information shared and has been given the mother/baby guide for home reference. PT discharge instructions provided and pt verbalized understanding of such care.
--- NOTE | 2022-11-05 12:07 | PC.NURSE ---
PT discharged to home ambulatory accompanied by spouse and and taken to waiting car. Follow up appts confirmed
[2022-11-06 10:15] VITALS: BP 131/78; PULSE 86; RESP 18; TEMP 36.7; O2SAT 98
== END 2022-11-05 12:07 | disposition home or self-care (01) | DRG 807 ==
LOC: ANHLDR 10:43 → ANHOB2 13:55
PROVIDERS: Admitting Provider Obstetrics & Gynecology; Visit Provider Obstetrics & Gynecology
DX: O99.824 Streptococcus B carrier state complicating childbirth (principal); Z37.0 Single live birth; Z3A.40 40 weeks gestation of pregnancy; O69.81X0 Labor and delivery complicated by cord around neck, without compression, not applicable or unspecified; O77.0 Labor and delivery complicated by meconium in amniotic fluid; O70.0 First degree perineal laceration during delivery
CPT/HCPCS: 36415; 85014; 85018; 85025; 86592; 86850; 86900; 86901; 88307; A9270; J0290; J2590; J2795; J7120